=== PATIENT | male | born 1985 | race Caucasian/White ===

== ENCOUNTER 2019-05-06 16:18 | Emergency (ER) | payer MEDICAID, OTHER ==
[~2019-05-06] VITALS: Ht 182.9 cm; Wt 79.4 kg
[2019-05-06 17:26] LABS: Albumin 4.3 g/dL (3.4-5.0); BUN/Creatinine Ratio 5.7; Calcium 8.7 mg/dL (8.5-10.1); Potassium 3.8 mmol/L (3.5-5.1)
[2019-05-06 17:29] LABS: Bilirubin, Total 1.7 mg/dL (0.2-1.0); Total Protein 7.7 g/dL (6.4-8.2)
[2019-05-06 17:38] LABS: Eosinophils # (auto) 0.1 uL; Lymphocytes # (auto) 1.8 uL; Mean Corpuscular Hgb Conc. 33.2 g/dL (32.0-36.0); Monocytes # (auto) 0.5 uL
[2019-05-06 17:40] LABS: Basophils # (auto) 0.1 uL; Basophils % (auto) 0.9 % (0.0-2.0); Eosinophils % (auto) 1.3 % (0.0-7.0); Hematocrit 43.7 % (41.0-53.0); Hemoglobin 14.5 g/dL (13.5-17.5); Lymphocytes % (auto) 27.6 % (10.0-50.0); Mean Corpuscular Hemoglobin 26.4 pg (28.0-32.0); Mean Corpuscular Volume 79.6 fL (80.0-100.0); Monocytes % (auto) 8.3 % (0.0-12.0); Neutrophils % (auto) 61.9 % (37.0-80.0); Nucleated Red Blood Cells % 0.1 %; Platelet Count (auto) 232 10^3/uL (140-450); Red Blood Cells 5.48 10^6/uL (4.5-5.90); Red Cell Distribution Width 14.2 % (11.8-14.3); White Blood Cell 6.4 10^3/uL (4.4-10.8)
[2019-05-06 18:31] LABS: Alcohol, Urine < 3.0 mg/dL (0-5); Amphetamine Screen, Urine NEGATIVE (NEGATIVE); Barbiturate Scree,Urine NEGATIVE (NEGATIVE); Benzodiazephine Screen, Urine NEGATIVE (NEGATIVE); Cannabinoid Screen, Urine NEGATIVE (NEGATIVE); Cocaine Screen, Urine NEGATIVE (NEGATIVE); Opiate Scree,Urine NEGATIVE (NEGATIVE); Phencyclidine Screen, Urine NEGATIVE (NEGATIVE)
[2019-05-06 18:32] VITALS: BP 116/68
[2019-05-06 18:51] LABS: Urine Bacteria NONE SEEN /hpf (None Seen); Urine Blood Negative /uL (Negative); Urine Mucus FEW (None Seen); Urine WBC 1 /hpf (0 - 3)
== END 2019-05-06 22:45 | disposition left against medical advice (07) ==
LOC: ER 16:18
DX: F32.9 Major depressive disorder, single episode, unspecified (principal); Z59.0 Homelessness
CPT/HCPCS: 36415; 80053; 80307; 81001; 85025